=== PATIENT | male | born 1995 | race Caucasian/White ===

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

== ENCOUNTER 2017-03-10 02:25 | Inpatient (IN) | END 2017-03-12 19:02 | disposition home or self-care (01) | DRG 639 ==

== ENCOUNTER 2017-07-06 06:02 | Inpatient (IN) | END 2017-07-08 16:28 | disposition left against medical advice (07) | DRG 638 ==